=== PATIENT | male | born 1950 | race Caucasian/White ===

== ENCOUNTER 2018-04-07 14:25 | Inpatient (IN) ==
[2018-04-07 16:02] LABS: Basophils # 0.1 10*3/uL (0.0-0.2); Basophils % 0.6 % (0.0-0.8); Eosinophils # 0.6 10*3/uL (0.0-0.87); Eosinophils % 4.3 % (0.00-10.9); Hematocrit 41.7 VOL% (42.0-52.0); Hemoglobin 13.6 GM/DL (14.0-18.0); Immature Granulocytes % 0.7 %; Immature Granulocytes Absolute 0.09 #; Lymphocytes # 0.7 10*3/uL (1.4-4.0); Lymphocytes % 5.2 % (21.2-54.2); Mean Corpuscular HGB Conc 32.6 GM/DL (32-36); Mean Corpuscular Hemoglobin 32 PG (27-34); Mean Corpuscular Volume 97.9 FL (87-102); Mean Platelet Volume 9.6 FL (9.6-12.0); Monocytes # 1.2 10*3/uL (0.11-0.8); Monocytes % 9.4 % (1.7-12.7); Neutrophils # 10.2 10*3/uL (1.4-7.4); Neutrophils % 79.8 % (38.7-73.9); Platelet Count 300 T/CUMM (130-400); Red Blood Count 4.26 MC/CUMM (3.8-5.5); Red Cell Distribution Width 12.6 % (9.3-17.3); White Blood Count 12.8 T/CUMM (4-12)
[2018-04-07 16:31] LABS: Albumin 2.8 G/DL (3.4-5.0); Bilirubin,Total 1.2 MG/DL (0.2-1.0); Calcium 8.5 MG/DL (8.5-10.1); Lactic Acid 1.1 MMOL/L (0.4-2.0); Total Protein 7.4 G/DL (6.4-8.3)
[2018-04-07] MEDS ORDERED: ACETAMINOPHEN 325 MG TABLET PO PRN (18:35)
[2018-04-07] MEDS ORDERED: ENOXAPARIN 40 MG/0.4 ML SYRINGE SUBCUT SCH (21:00)
[2018-04-07] MEDS: SODIUM CHLORIDE 0.9% 1,000 ML IV SCH (22:25)
[2018-04-08 06:07] LABS: Basophils # 0.1 10*3/uL (0.0-0.2); Basophils % 0.6 % (0.0-0.8); Eosinophils # 0.7 10*3/uL (0.0-0.87); Eosinophils % 6.1 % (0.00-10.9); Hematocrit 38.1 VOL% (42.0-52.0); Hemoglobin 12.3 GM/DL (14.0-18.0); Immature Granulocytes % 0.6 %; Immature Granulocytes Absolute 0.06 #; Lymphocytes # 0.7 10*3/uL (1.4-4.0); Lymphocytes % 6.2 % (21.2-54.2); Mean Corpuscular HGB Conc 32.3 GM/DL (32-36); Mean Corpuscular Hemoglobin 32 PG (27-34); Mean Corpuscular Volume 97.9 FL (87-102); Mean Platelet Volume 10.2 FL (9.6-12.0); Monocytes # 1.2 10*3/uL (0.11-0.8); Monocytes % 10.6 % (1.7-12.7); Neutrophils # 8.3 10*3/uL (1.4-7.4); Neutrophils % 75.9 % (38.7-73.9); Platelet Count 283 T/CUMM (130-400); Red Blood Count 3.89 MC/CUMM (3.8-5.5); Red Cell Distribution Width 12.7 % (9.3-17.3); White Blood Count 10.9 T/CUMM (4-12)
[2018-04-08 06:35] LABS: Albumin 2.4 G/DL (3.4-5.0); Bilirubin,Total 1.5 MG/DL (0.2-1.0); Calcium 8.2 MG/DL (8.5-10.1); Potassium 3.6 MMOL/L (3.5-5.1); Total Protein 6.5 G/DL (6.4-8.3)
[2018-04-08 12:44] LABS: Cancer Antigen 19-9 226.6 U/ML (0-37); Carcinoembryonic Antigen 7.8 NG/ML (0.0-5.0)
[2018-04-08] MEDS: MULTIVITAMIN (CENTRUM) TABLET PO SCH (13:31)
[2018-04-08] MEDS: SODIUM CHLORIDE 0.9% 1,000 ML IV SCH ×2 (14:35→19:32)
[2018-04-09] MEDS: SODIUM CHLORIDE 0.9% 1,000 ML IV SCH ×2 (03:10→12:46)
[2018-04-09 04:56] LABS: Albumin 2.3 G/DL (3.4-5.0); Bilirubin,Direct 0.28 MG/DL (0.0-0.20); Bilirubin,Indirect 1.3 MG/DL (0.0-1.0); Bilirubin,Total 1.6 MG/DL (0.2-1.0)
[2018-04-09] MEDS: MULTIVITAMIN (CENTRUM) TABLET PO SCH (09:28)
[2018-04-09] MEDS ORDERED: LORazepam 2 MG/1 ML VIAL IV PRN (10:58)
[2018-04-09] MEDS: THIAMINE 100 MG TABLET PO SCH (12:45)
[2018-04-09] MEDS: FOLIC ACID 1 MG TABLET PO SCH (12:45)
[2018-04-09 15:17] LABS: INR 1.1; Partial Thromboplastin Time 29.2 SECS (0-40)
[2018-04-10 05:05] LABS: Albumin 2.5 G/DL (3.4-5.0); Bilirubin,Direct 0.47 MG/DL (0.0-0.20); Bilirubin,Indirect 1.2 MG/DL (0.0-1.0); Bilirubin,Total 1.7 MG/DL (0.2-1.0); Total Protein 6.2 G/DL (6.4-8.3)
[2018-04-10] MEDS: SODIUM CHLORIDE 0.9% 1,000 ML IV SCH ×3 (05:18→23:21)
[2018-04-10] MEDS: FOLIC ACID 1 MG TABLET PO SCH (09:00)
[2018-04-10] MEDS: THIAMINE 100 MG TABLET PO SCH (09:00)
[2018-04-10] MEDS: MULTIVITAMIN (CENTRUM) TABLET PO SCH (09:00)
[2018-04-11 04:31] LABS: Basophils # 0.1 10*3/uL (0.0-0.2); Basophils % 0.5 % (0.0-0.8); Eosinophils # 0.7 10*3/uL (0.0-0.87); Eosinophils % 5.9 % (0.00-10.9); Hematocrit 37.9 VOL% (42.0-52.0); Hemoglobin 12.4 GM/DL (14.0-18.0); Immature Granulocytes % 0.6 %; Immature Granulocytes Absolute 0.07 #; Lymphocytes # 0.4 10*3/uL (1.4-4.0); Mean Corpuscular HGB Conc 32.7 GM/DL (32-36); Mean Corpuscular Hemoglobin 32 PG (27-34); Mean Corpuscular Volume 96.2 FL (87-102); Mean Platelet Volume 9.8 FL (9.6-12.0); Monocytes # 1.1 10*3/uL (0.11-0.8); Monocytes % 9.7 % (1.7-12.7); Neutrophils # 8.8 10*3/uL (1.4-7.4); Neutrophils % 79.3 % (38.7-73.9); Platelet Count 278 T/CUMM (130-400); Red Blood Count 3.94 MC/CUMM (3.8-5.5); Red Cell Distribution Width 12.8 % (9.3-17.3); White Blood Count 11.1 T/CUMM (4-12)
[2018-04-11 04:35] LABS: INR 1.1
[2018-04-11 05:00] LABS: Band Neutrophils 1 % (0-10); Eosinophils 7 % (0-10); Lymphocytes 5 % (20-55); Platelet Estimate Normal; Segmented Neutrophils 81 % (50-85); Total Cells Counted 100
[2018-04-11] MEDS: FOLIC ACID 1 MG TABLET PO SCH (09:01)
[2018-04-11] MEDS: MULTIVITAMIN (CENTRUM) TABLET PO SCH (09:01)
[2018-04-11] MEDS: THIAMINE 100 MG TABLET PO SCH (09:01)
[2018-04-11 13:56] VITALS: BP 135/75
== END 2018-04-11 14:08 | disposition home or self-care (01) | DRG 436 ==
LOC: N.ED 14:25 → N.3E 18:35 → SUATTDRO 18:35 → N.3E 20:09
PROVIDERS: ADMIT Internal Medicine Geriatric Medicine; ATTEND Internal Medicine

== ENCOUNTER 2018-05-13 13:26 | Inpatient (IN) ==
[2018-05-13 13:48] LABS: Basophils # 0.1 10*3/uL (0.0-0.2); Basophils % 0.7 % (0.0-0.8); Eosinophils # 1.1 10*3/uL (0.0-0.87); Eosinophils % 13.8 % (0.00-10.9); Hematocrit 37.2 VOL% (42.0-52.0); Hemoglobin 12.1 GM/DL (14.0-18.0); Immature Granulocytes % 0.5 %; Immature Granulocytes Absolute 0.04 #; Lymphocytes # 0.5 10*3/uL (1.4-4.0); Lymphocytes % 5.7 % (21.2-54.2); Mean Corpuscular HGB Conc 32.5 GM/DL (32-36); Mean Corpuscular Hemoglobin 30 PG (27-34); Mean Corpuscular Volume 91.2 FL (87-102); Monocytes # 1.3 10*3/uL (0.11-0.8); Monocytes % 15.6 % (1.7-12.7); Neutrophils # 5.2 10*3/uL (1.4-7.4); Neutrophils % 63.7 % (38.7-73.9); Platelet Count 172 T/CUMM (130-400); Red Blood Count 4.08 MC/CUMM (3.8-5.5); Red Cell Distribution Width 17.2 % (9.3-17.3); White Blood Count 8.1 T/CUMM (4-12)
[2018-05-13 14:22] LABS: Albumin 1.9 G/DL (3.4-5.0); Bilirubin,Total 2.7 MG/DL (0.2-1.0); Calcium 8.3 MG/DL (8.5-10.1); Osmolality,Calculated 265.9 MOS/KG (273-304); Total Protein 5.6 G/DL (6.4-8.3)
[2018-05-13] MEDS ORDERED: LACTATED RINGERS 1,000 ML IV SCH (14:30)
[2018-05-13] MEDS ORDERED: LACTATED RINGERS 1,000 ML IV ONE (14:39)
[2018-05-13] MEDS ORDERED: SODIUM CHLORIDE 0.9% 2,000 ML IV STA (15:00)
[2018-05-13] MEDS ORDERED: MEROPENEM 1,000 MG in SODIUM CHLORIDE 0.9% 100 ML IV STA (15:05)
[2018-05-13] MEDS ORDERED: PIPERACILLIN/TAZOBACTAM 3,375 MG in SODIUM CHLORIDE 0.9% 100 ML IV STA (15:07)
[2018-05-13] MEDS ORDERED: ONDANSETRON 4 MG/2 ML VIAL IV STA (15:18)
[2018-05-13] MEDS ORDERED: ONDANSETRON 4 MG/2 ML VIAL ONE (15:20)
[2018-05-13] MEDS ORDERED: PROMETHAZINE 25 MG/1 ML VIAL IM PRN (15:28)
[2018-05-13] MEDS ORDERED: ACETAMINOPHEN 325 MG TABLET PO PRN (15:28)
[2018-05-13] MEDS ORDERED: ONDANSETRON 4 MG/2 ML VIAL IV PRN (15:28)
[2018-05-13 16:32] LABS: Apearance,Urine CLEAR (Clear); Bilirubin,Urine Negative (Negative); Blood, Urine Negative (Negative); Glucose,Urine (UA) Negative (Negative); Hyaline Casts,Urine 4 /LPF (0-3); Ketones,Urine Negative (Negative); Mucus,Urine Occasional /LPF (Occasional); Nitrite,Urine Negative (Negative); Protein,Urine Negative; RBC,Urine 2 /HPF (0-4); Squamous Epithelial Cell,Urine Occasional /HPF (0-10); Urine Color Amber (Yellow); Urine Specific Gravity 1.019 (1.001-1.035); Urine Urobilinogen < 2.0 EU/DL (0.2-1.0); WBC,Urine 1 /HPF (0-6)
[2018-05-13] MEDS ORDERED: PROCHLORPERAZINE 10 MG TABLET PO PRN (16:44)
[2018-05-13] MEDS: PANTOPRAZOLE 40 MG TABLET PO SCH (16:46)
[2018-05-13] MEDS: MORPHINE 4 MG/1 ML VIAL IV PRN ×2 (17:30→21:45)
[2018-05-13 17:39] LABS: Band Neutrophils 4 % (0-10); Eosinophils 12 % (0-10); Lymphocytes 5 % (20-55); Platelet Estimate Normal; Segmented Neutrophils 64 % (50-85); Total Cells Counted 100
[2018-05-14] MEDS: PIPERACILLIN/TAZOBACTAM 3,375 MG in SODIUM CHLORIDE 0.9% 100 ML IV SCH ×3 (00:01→21:38)
[2018-05-14] MEDS: HEPARIN LOCK FLUSH 500 UNIT/5 ML SYRINGE IV SCH ×2 (04:16→18:42)
[2018-05-14 05:30] LABS: Basophils % 0.5 % (0.0-0.8); Eosinophils # 1.1 10*3/uL (0.0-0.87); Eosinophils % 19.8 % (0.00-10.9); Hematocrit 33.3 VOL% (42.0-52.0); Hemoglobin 10.6 GM/DL (14.0-18.0); Immature Granulocytes % 0.9 %; Immature Granulocytes Absolute 0.05 #; Lymphocytes # 0.5 10*3/uL (1.4-4.0); Lymphocytes % 8.1 % (21.2-54.2); Mean Corpuscular HGB Conc 31.8 GM/DL (32-36); Mean Corpuscular Hemoglobin 29 PG (27-34); Mean Corpuscular Volume 91.7 FL (87-102); Monocytes # 1.5 10*3/uL (0.11-0.8); Monocytes % 25.4 % (1.7-12.7); Neutrophils # 2.6 10*3/uL (1.4-7.4); Neutrophils % 45.3 % (38.7-73.9); Platelet Count 170 T/CUMM (130-400); Red Blood Count 3.63 MC/CUMM (3.8-5.5); Red Cell Distribution Width 17.5 % (9.3-17.3); White Blood Count 5.7 T/CUMM (4-12)
[2018-05-14 05:59] LABS: Albumin 1.8 G/DL (3.4-5.0); Band Neutrophils 6 % (0-10); Bilirubin,Total 3.2 MG/DL (0.2-1.0); Calcium 7.9 MG/DL (8.5-10.1); Eosinophils 22 % (0-10); Hypochromasia 1+; Lymphocytes 6 % (20-55); Osmolality,Calculated 260.1 MOS/KG (273-304); Platelet Estimate Adequate; Potassium 4.7 MMOL/L (3.5-5.1); Segmented Neutrophils 44 % (50-85); Total Cells Counted 100; Total Protein 5.6 G/DL (6.4-8.3)
[2018-05-14 06:00] LABS: Misc Morphology FEW LAREG; Ovalocytes Slight
[2018-05-14] MEDS: MORPHINE 4 MG/1 ML VIAL IV PRN ×3 (06:13→21:33)
[2018-05-14] MEDS ORDERED: FUROSEMIDE 40 MG/4 ML VIAL IV ONE ×2 (09:34→19:00)
[2018-05-14] MEDS ORDERED: ALBUMIN 5% 25 GM in PREMIX 1 EACH IV ONE (10:00)
[2018-05-14] MEDS: PANTOPRAZOLE 40 MG TABLET PO SCH ×2 (12:19→14:54)
[2018-05-14] MEDS: ALBUTEROL/IPRATROPIUM 3 ML NEB RESP TX SCH ×2 (13:58→19:24)
[2018-05-14] MEDS: AZITHROMYCIN INJ 250 MG in SODIUM CHLORIDE 0.9% 250 ML IV SCH (18:44)
[2018-05-15] MEDS: ALBUTEROL/IPRATROPIUM 3 ML NEB RESP TX SCH ×4 (01:02→20:04)
[2018-05-15] MEDS: MORPHINE 4 MG/1 ML VIAL IV PRN ×4 (01:29→23:36)
[2018-05-15] MEDS: HEPARIN LOCK FLUSH 500 UNIT/5 ML SYRINGE IV SCH ×2 (01:35→15:34)
[2018-05-15 04:32] LABS: Basophils % 0.5 % (0.0-0.8); Hematocrit 31.6 VOL% (42.0-52.0); Immature Granulocytes % 1.6 %; Immature Granulocytes Absolute 0.07 #; Lymphocytes # 0.3 10*3/uL (1.4-4.0); Lymphocytes % 7.6 % (21.2-54.2); Mean Corpuscular HGB Conc 31.6 GM/DL (32-36); Mean Corpuscular Hemoglobin 29 PG (27-34); Mean Corpuscular Volume 92.4 FL (87-102); Monocytes # 1.6 10*3/uL (0.11-0.8); Monocytes % 36.4 % (1.7-12.7); Neutrophils # 1.3 10*3/uL (1.4-7.4); Neutrophils % 29.9 % (38.7-73.9); Platelet Count 221 T/CUMM (130-400); Red Blood Count 3.42 MC/CUMM (3.8-5.5); Red Cell Distribution Width 18.1 % (9.3-17.3); White Blood Count 4.3 T/CUMM (4-12)
[2018-05-15] MEDS: PIPERACILLIN/TAZOBACTAM 3,375 MG in SODIUM CHLORIDE 0.9% 100 ML IV SCH ×3 (04:47→21:51)
[2018-05-15 04:53] LABS: Albumin 1.9 G/DL (3.4-5.0); Bilirubin,Total 3.6 MG/DL (0.2-1.0); Osmolality,Calculated 262.8 MOS/KG (273-304); Potassium 3.8 MMOL/L (3.5-5.1); Total Protein 5.7 G/DL (6.4-8.3)
[2018-05-15 05:21] LABS: Band Neutrophils 2 % (0-10); Eosinophils 29 % (0-10); Hypochromasia 1+; Lymphocytes 13 % (20-55); Platelet Estimate Adequate; Segmented Neutrophils 29 % (50-85); Total Cells Counted 100
[2018-05-15] MEDS ORDERED: MAGNESIUM SULF RIDER 2 GM in PREMIX 1 EACH IV ONE (07:58)
[2018-05-15] MEDS: PANTOPRAZOLE 40 MG TABLET PO SCH (08:51)
[2018-05-15] MEDS: oxyCODONE IR 5 MG TABLET PO PRN ×3 (10:43→21:55)
[2018-05-15] MEDS: ALBUMIN 25% 25 GM in PREMIX 1 EACH IV SCH ×2 (12:01→20:32)
[2018-05-15] MEDS: FUROSEMIDE 40 MG/4 ML VIAL IV SCH ×2 (13:35→16:38)
[2018-05-15] MEDS: AZITHROMYCIN INJ 250 MG in SODIUM CHLORIDE 0.9% 250 ML IV SCH (13:39)
[2018-05-16] MEDS: ALBUTEROL/IPRATROPIUM 3 ML NEB RESP TX SCH ×4 (01:11→20:08)
[2018-05-16] MEDS: HEPARIN LOCK FLUSH 500 UNIT/5 ML SYRINGE IV SCH ×2 (02:35→14:20)
[2018-05-16 04:55] LABS: Basophils % 0.7 % (0.0-0.8); Eosinophils # 1.2 10*3/uL (0.0-0.87); Eosinophils % 27.6 % (0.00-10.9); Hematocrit 32.4 VOL% (42.0-52.0); Hemoglobin 10.3 GM/DL (14.0-18.0); Immature Granulocytes Absolute 0.22 #; Lymphocytes # 0.4 10*3/uL (1.4-4.0); Lymphocytes % 8.2 % (21.2-54.2); Mean Corpuscular HGB Conc 31.8 GM/DL (32-36); Mean Corpuscular Hemoglobin 30 PG (27-34); Mean Corpuscular Volume 93.1 FL (87-102); Monocytes # 1.8 10*3/uL (0.11-0.8); Monocytes % 40.8 % (1.7-12.7); Neutrophils # 0.8 10*3/uL (1.4-7.4); Neutrophils % 17.7 % (38.7-73.9); Platelet Count 249 T/CUMM (130-400); Red Blood Count 3.48 MC/CUMM (3.8-5.5); Red Cell Distribution Width 18.2 % (9.3-17.3); White Blood Count 4.4 T/CUMM (4-12)
[2018-05-16 05:29] LABS: Albumin 2.5 G/DL (3.4-5.0); Bilirubin,Total 3.9 MG/DL (0.2-1.0); Calcium 8.2 MG/DL (8.5-10.1); Osmolality,Calculated 264.7 MOS/KG (273-304); Total Protein 5.9 G/DL (6.4-8.3)
[2018-05-16] MEDS: PIPERACILLIN/TAZOBACTAM 3,375 MG in SODIUM CHLORIDE 0.9% 100 ML IV SCH ×3 (05:36→21:47)
[2018-05-16 05:58] LABS: Band Neutrophils 4 % (0-10); Eosinophils 37 % (0-10); Hypochromasia 1+; Lymphocytes 9 % (20-55); Ovalocytes Slight; Platelet Estimate Adequate; Segmented Neutrophils 13 % (50-85); Total Cells Counted 100
[2018-05-16] MEDS ORDERED: BETAMETH SODIUM PHOS/ACETATE 30 MG/5 ML VIAL INTRAARTIC ONE (06:00)
[2018-05-16] MEDS ORDERED: BUPIVACAINE 0.25% 50 ML VIAL MISC INJ ONE (06:00)
[2018-05-16] MEDS: PANTOPRAZOLE 40 MG TABLET PO SCH (08:36)
[2018-05-16] MEDS: oxyCODONE IR 5 MG TABLET PO PRN ×2 (08:42→16:23)
[2018-05-16] MEDS ORDERED: PALONOSETRON 0.25 MG/5 ML VIAL IV ONE (09:00)
[2018-05-16] MEDS ORDERED: DEXAMETHASONE 10 MG/1 ML VIAL IV ONE (09:00)
[2018-05-16] MEDS: ALBUMIN 25% 25 GM in PREMIX 1 EACH IV SCH ×2 (09:45→20:25)
[2018-05-16] MEDS ORDERED: FLUOROURACIL 800 MG in SYRINGE 1 EACH IV ONE (10:00)
[2018-05-16] MEDS ORDERED: DEXTROSE 5% IV ONE (10:00)
[2018-05-16] MEDS ORDERED: LEUCOVORIN INJ 700 MG, LEUCOVORIN INJ 100 MG in DEXTROSE 5% 250 ML IV ONE (10:00)
[2018-05-16] MEDS ORDERED: OXALIPLATIN IV ONE (10:00)
[2018-05-16] MEDS ORDERED: POTASSIUM CHLORIDE RIDER 10 MEQ in PREMIX 1 EACH IV PRN (10:13)
[2018-05-16] MEDS ORDERED: POTASSIUM CHLORIDE RIDER 20 MEQ in PREMIX 1 EACH IV PRN (10:13)
[2018-05-16] MEDS: AZITHROMYCIN INJ 250 MG in SODIUM CHLORIDE 0.9% 250 ML IV SCH (11:18)
[2018-05-16] MEDS: FUROSEMIDE 40 MG/4 ML VIAL IV SCH ×2 (11:18→17:33)
[2018-05-16] MEDS: POTASSIUM CHLORIDE 20 MEQ TABLET PO SCH ×2 (11:19→20:25)
[2018-05-16] MEDS: SPIRONOLACTONE 25 MG TABLET PO SCH ×2 (11:21→20:25)
[2018-05-16] MEDS: POTASSIUM CHLORIDE 20 MEQ TABLET PO PRN ×2 (16:23→21:48)
[2018-05-16] MEDS: FLUOROURACIL 2,000 MG in SODIUM CHLORIDE 0.9% 1,000 ML IV SCH (17:35)
[2018-05-17] MEDS: ALBUTEROL/IPRATROPIUM 3 ML NEB RESP TX SCH ×4 (00:58→20:18)
[2018-05-17] MEDS: oxyCODONE IR 5 MG TABLET PO PRN ×2 (01:27→20:37)
[2018-05-17] MEDS: HEPARIN LOCK FLUSH 500 UNIT/5 ML SYRINGE IV SCH ×2 (01:28→13:02)
[2018-05-17] MEDS: PIPERACILLIN/TAZOBACTAM 3,375 MG in SODIUM CHLORIDE 0.9% 100 ML IV SCH (04:47)
[2018-05-17 06:11] LABS: Basophils % 0.4 % (0.0-0.8); Eosinophils # 0.1 10*3/uL (0.0-0.87); Eosinophils % 5.3 % (0.00-10.9); Hematocrit 31.9 VOL% (42.0-52.0); Immature Granulocytes % 6.6 %; Immature Granulocytes Absolute 0.15 #; Lymphocytes # 0.1 10*3/uL (1.4-4.0); Lymphocytes % 4.4 % (21.2-54.2); Mean Corpuscular HGB Conc 31.3 GM/DL (32-36); Mean Corpuscular Hemoglobin 30 PG (27-34); Mean Corpuscular Volume 95.8 FL (87-102); Mean Platelet Volume 10.8 FL (9.6-12.0); Monocytes # 0.7 10*3/uL (0.11-0.8); Monocytes % 29.8 % (1.7-12.7); Neutrophils # 1.2 10*3/uL (1.4-7.4); Neutrophils % 53.5 % (38.7-73.9); Platelet Count 234 T/CUMM (130-400); Red Blood Count 3.33 MC/CUMM (3.8-5.5); Red Cell Distribution Width 18.1 % (9.3-17.3); White Blood Count 2.3 T/CUMM (4-12)
[2018-05-17 06:43] LABS: Albumin 2.5 G/DL (3.4-5.0); Bilirubin,Total 3.6 MG/DL (0.2-1.0); Osmolality,Calculated 266.7 MOS/KG (273-304); Potassium 3.3 MMOL/L (3.5-5.1)
[2018-05-17] MEDS ORDERED: MAGNESIUM SULF RIDER 2 GM in PREMIX 1 EACH IV ONE (06:50)
[2018-05-17] MEDS ORDERED: POTASSIUM CHLORIDE 20 MEQ TABLET PO ONE (06:51)
[2018-05-17 07:03] LABS: Band Neutrophils 26 % (0-10); Eosinophils 6 % (0-10); Hypochromasia 1+; Lymphocytes 6 % (20-55); Myelocytes 1 %; Ovalocytes Slight; Platelet Estimate Adequate; Segmented Neutrophils 28 % (50-85); Total Cells Counted 100
[2018-05-17] MEDS: PANTOPRAZOLE 40 MG TABLET PO SCH (08:52)
[2018-05-17] MEDS: SPIRONOLACTONE 25 MG TABLET PO SCH ×2 (08:52→20:37)
[2018-05-17] MEDS: POTASSIUM CHLORIDE 20 MEQ TABLET PO SCH ×2 (08:52→20:37)
[2018-05-17] MEDS: FUROSEMIDE 40 MG TABLET PO SCH ×2 (08:52→16:52)
[2018-05-17 10:03] LABS: Hepatitis A Ab IgM Quant 0.13 Index; Hepatitis A Ab IgM Result Negative (Negative); Hepatitis B Core IgM Quant 0.06 Index; Hepatitis B Core IgM Result Negative (Negative); Hepatitis B Surface Ag Quant < 0.10 Index; Hepatitis B Surface Ag Result Negative (Negative); Hepatitis C Virus Ab Quant > 11.00 Index; Hepatitis C Virus Ab Result Positive (Negative)
[2018-05-17] MEDS: AZITHROMYCIN INJ 250 MG in SODIUM CHLORIDE 0.9% 250 ML IV SCH (12:57)
[2018-05-17] MEDS: FLUOROURACIL 2,000 MG in SODIUM CHLORIDE 0.9% 1,000 ML IV SCH (16:53)
[2018-05-18] MEDS: POTASSIUM CHLORIDE 20 MEQ TABLET PO PRN ×3 (00:12→03:59)
[2018-05-18] MEDS: oxyCODONE IR 5 MG TABLET PO PRN (00:39)
[2018-05-18] MEDS: ALBUTEROL/IPRATROPIUM 3 ML NEB RESP TX SCH ×3 (01:17→13:03)
[2018-05-18] MEDS: HEPARIN LOCK FLUSH 500 UNIT/5 ML SYRINGE IV SCH ×2 (03:29→16:13)
[2018-05-18 04:43] LABS: Basophils % 0.3 % (0.0-0.8); Eosinophils # 0.4 10*3/uL (0.0-0.87); Eosinophils % 6.6 % (0.00-10.9); Hemoglobin 10.7 GM/DL (14.0-18.0); Immature Granulocytes % 2.1 %; Immature Granulocytes Absolute 0.13 #; Lymphocytes # 0.3 10*3/uL (1.4-4.0); Lymphocytes % 4.4 % (21.2-54.2); Mean Corpuscular HGB Conc 32.4 GM/DL (32-36); Mean Corpuscular Hemoglobin 30 PG (27-34); Mean Corpuscular Volume 93.2 FL (87-102); Mean Platelet Volume 11.4 FL (9.6-12.0); Monocytes % 15.3 % (1.7-12.7); Neutrophils # 4.5 10*3/uL (1.4-7.4); Neutrophils % 71.3 % (38.7-73.9); Platelet Count 246 T/CUMM (130-400); Red Blood Count 3.54 MC/CUMM (3.8-5.5); Red Cell Distribution Width 18.4 % (9.3-17.3); White Blood Count 6.3 T/CUMM (4-12)
[2018-05-18 05:13] LABS: Albumin 2.4 G/DL (3.4-5.0); Bilirubin,Total 3.8 MG/DL (0.2-1.0); Calcium 7.7 MG/DL (8.5-10.1); Osmolality,Calculated 262.8 MOS/KG (273-304); Potassium 5.9 MMOL/L (3.5-5.1); Total Protein 6.1 G/DL (6.4-8.3)
[2018-05-18 05:29] LABS: Band Neutrophils 7 % (0-10); Eosinophils 8 % (0-10); Lymphocytes 16 % (20-55); Myelocytes 1 %; Segmented Neutrophils 43 % (50-85); Total Cells Counted 100
[2018-05-18 05:30] LABS: Platelet Estimate Normal
[2018-05-18] MEDS: FUROSEMIDE 40 MG TABLET PO SCH (09:35)
[2018-05-18] MEDS: SPIRONOLACTONE 25 MG TABLET PO SCH (09:36)
[2018-05-18] MEDS: PANTOPRAZOLE 40 MG TABLET PO SCH (09:36)
[2018-05-18] MEDS: AZITHROMYCIN INJ 250 MG in SODIUM CHLORIDE 0.9% 250 ML IV SCH (09:37)
[2018-05-18 11:59] VITALS: BP 120/68
[2018-05-18] MEDS: POTASSIUM CHLORIDE 20 MEQ TABLET PO SCH (15:12)
== END 2018-05-18 15:02 | disposition home health service (06) | DRG 436 ==
LOC: EDUNIT# → EDBD → N.ED 13:26 → N.EDINP 15:28 → SUATTDRO 15:28 → N.EDINP 16:17 → N.4E 16:44
PROVIDERS: ADMIT Internal Medicine; ATTEND Internal Medicine Cardiovascular Disease

== ENCOUNTER 2018-05-22 16:23 | Inpatient (IN) ==
[2018-05-22] MEDS ORDERED: ONDANSETRON 4 MG/2 ML VIAL IV STA (17:04)
[2018-05-22] MEDS ORDERED: MORPHINE 4 MG/1 ML VIAL IV STA (17:04)
[2018-05-22] MEDS ORDERED: FUROSEMIDE 40 MG/4 ML VIAL IV STA (17:04)
[2018-05-22] MEDS ORDERED: PANTOPRAZOLE 40 MG VIAL IV STA (17:04)
[2018-05-22] MEDS ORDERED: ALBUTEROL/IPRATROPIUM 3 ML NEB RESP TX STA (17:04)
[2018-05-22 17:25] LABS: Basophils % 0.1 % (0.0-0.8); Eosinophils # 0.4 10*3/uL (0.0-0.87); Eosinophils % 0.8 % (0.00-10.9); Hematocrit 36.4 VOL% (42.0-52.0); Hemoglobin 11.8 GM/DL (14.0-18.0); Immature Granulocytes % 3.9 %; Immature Granulocytes Absolute 1.92 #; Lymphocytes # 0.7 10*3/uL (1.4-4.0); Lymphocytes % 1.4 % (21.2-54.2); Mean Corpuscular HGB Conc 32.4 GM/DL (32-36); Mean Corpuscular Hemoglobin 30 PG (27-34); Mean Corpuscular Volume 92.9 FL (87-102); Mean Platelet Volume 11.4 FL (9.6-12.0); Monocytes # 1.7 10*3/uL (0.11-0.8); Monocytes % 3.5 % (1.7-12.7); Neutrophils % 90.3 % (38.7-73.9); Platelet Count 202 T/CUMM (130-400); Red Blood Count 3.92 MC/CUMM (3.8-5.5)
[2018-05-22 17:31] LABS: White Blood Count 48.8 T/CUMM (4-12)
[2018-05-22 17:36] LABS: Alanine Aminotransferase 31 U/L (16-61); Albumin 2.6 G/DL (3.4-5.0); Alkaline Phosphatase 302 U/L (45-117); Amylase 20 U/L (25-115); Aspartate Amino Transferase 43 U/L (0-37); Blood Urea Nitrogen 45 MG/DL (7-18); Calcium 8.9 MG/DL (8.5-10.1); Glucose 89 MG/DL (74-106); Lipase < 50.0 U/L (73-393); Osmolality,Calculated 270.8 MOS/KG (273-304); Potassium 4.4 MMOL/L (3.5-5.1); Sodium 130 MMOL/L (136-145); Total Protein 6.3 G/DL (6.4-8.3)
[2018-05-22 17:53] LABS: Band Neutrophils 2 % (0-10); Lymphocytes 2 % (20-55); Segmented Neutrophils 92 % (50-85); Total Cells Counted 100
[2018-05-22 17:54] LABS: Hypochromasia 1+
[2018-05-22 17:55] LABS: Ovalocytes Slight
[2018-05-22 17:56] LABS: Platelet Estimate Normal
[2018-05-22] MEDS ORDERED: MEROPENEM 1,000 MG in SODIUM CHLORIDE 0.9% 100 ML IV SCH (18:30)
[2018-05-22 18:46] LABS: INR 1.2; PT Patient Result 13.2 SECS
[2018-05-22] MEDS ORDERED: SODIUM CHLORIDE 0.9% 1,000 ML IV ONE (18:56)
[2018-05-22] MEDS ORDERED: SODIUM CHLORIDE 0.9% 1,000 ML IV STA (19:44)
[2018-05-22 19:48] LABS: Apearance,Urine CLEAR (Clear); Bilirubin,Urine Negative (Negative); Blood, Urine Negative (Negative); Glucose,Urine (UA) Negative (Negative); Hyaline Casts,Urine 7 /LPF (0-3); Ketones,Urine Negative (Negative); Mucus,Urine Occasional /LPF (Occasional); Nitrite,Urine Negative (Negative); Protein,Urine Negative; RBC,Urine 1 /HPF (0-4); Squamous Epithelial Cell,Urine Occasional /HPF (0-10); Urine Color Yellow (Yellow); Urine Specific Gravity 1.015 (1.001-1.035); Urine Urobilinogen < 2.0 EU/DL (0.2-1.0)
[2018-05-22] MEDS ORDERED: BENZOCAINE/BUTAMBEN/TETRACAINE SPRAY 20 GM CAN TOP ONE (20:00)
[2018-05-22] MEDS ORDERED: HYDROmorphone 2 MG/1 ML VIAL ONE (20:35)
[2018-05-22] MEDS: SODIUM CHLORIDE 0.9% 1,000 ML IV SCH (21:25)
[2018-05-22] MEDS: MORPHINE 4 MG/1 ML VIAL IV PRN (22:29)
[2018-05-22] MEDS: PIPERACILLIN/TAZOBACTAM 3,375 MG in SODIUM CHLORIDE 0.9% 100 ML IV SCH (23:12)
[2018-05-22] MEDS: ENOXAPARIN 30 MG/0.3 ML SYRINGE SUBCUT SCH (23:55)
[2018-05-23 05:43] LABS: Basophils % 0.1 % (0.0-0.8); Eosinophils # 0.5 10*3/uL (0.0-0.87); Eosinophils % 1.9 % (0.00-10.9); Hematocrit 35.8 VOL% (42.0-52.0); Hemoglobin 11.2 GM/DL (14.0-18.0); Immature Granulocytes % 3.1 %; Immature Granulocytes Absolute 0.74 #; Lymphocytes # 0.7 10*3/uL (1.4-4.0); Mean Corpuscular HGB Conc 31.3 GM/DL (32-36); Mean Corpuscular Hemoglobin 29 PG (27-34); Mean Corpuscular Volume 93.7 FL (87-102); Mean Platelet Volume 11.7 FL (9.6-12.0); Monocytes # 1.5 10*3/uL (0.11-0.8); Monocytes % 6.5 % (1.7-12.7); NRBC # 0.03 10*3/uL; Neutrophils # 20.1 10*3/uL (1.4-7.4); Neutrophils % 85.4 % (38.7-73.9); Platelet Count 161 T/CUMM (130-400); Red Blood Count 3.82 MC/CUMM (3.8-5.5); Red Cell Distribution Width 19.1 % (9.3-17.3); White Blood Count 23.6 T/CUMM (4-12)
[2018-05-23] MEDS: PIPERACILLIN/TAZOBACTAM 3,375 MG in SODIUM CHLORIDE 0.9% 100 ML IV SCH ×3 (05:45→22:06)
[2018-05-23 06:05] LABS: Albumin 2.2 G/DL (3.4-5.0); Bilirubin,Total 3.7 MG/DL (0.2-1.0); Calcium 8.6 MG/DL (8.5-10.1); Osmolality,Calculated 269.8 MOS/KG (273-304); Potassium 4.5 MMOL/L (3.5-5.1); Total Protein 5.8 G/DL (6.4-8.3)
[2018-05-23 06:07] LABS: Band Neutrophils 6 % (0-10); Eosinophils 2 % (0-10); Hypochromasia 1+; Lymphocytes 7 % (20-55); Nucleated Red Blood Cells 1 (0-5); Platelet Estimate Adequate; Segmented Neutrophils 75 % (50-85); Total Cells Counted 100
[2018-05-23] MEDS: SODIUM CHLORIDE 0.9% 1,000 ML IV SCH (06:09)
[2018-05-23] MEDS: DEXTROSE 5% NACL 0.45% 1,000 ML IV SCH (10:04)
[2018-05-23] MEDS: MORPHINE 4 MG/1 ML VIAL IV PRN ×3 (10:04→22:05)
[2018-05-23] MEDS: ENOXAPARIN 30 MG/0.3 ML SYRINGE SUBCUT SCH (22:04)
[2018-05-23] MEDS: ONDANSETRON 4 MG/2 ML VIAL IV PRN (22:05)
[2018-05-24] MEDS: DEXTROSE 5% NACL 0.45% 1,000 ML IV SCH ×4 (03:30→15:57)
[2018-05-24] MEDS: MORPHINE 4 MG/1 ML VIAL IV PRN ×3 (05:09→15:50)
[2018-05-24] MEDS: PIPERACILLIN/TAZOBACTAM 3,375 MG in SODIUM CHLORIDE 0.9% 100 ML IV SCH ×3 (05:30→20:34)
[2018-05-24 06:06] LABS: Basophils % 0.1 % (0.0-0.8); Eosinophils # 0.3 10*3/uL (0.0-0.87); Eosinophils % 1.7 % (0.00-10.9); Hematocrit 33.9 VOL% (42.0-52.0); Hemoglobin 10.7 GM/DL (14.0-18.0); Immature Granulocytes % 1.7 %; Immature Granulocytes Absolute 0.28 #; Lymphocytes # 0.5 10*3/uL (1.4-4.0); Lymphocytes % 3.3 % (21.2-54.2); Mean Corpuscular HGB Conc 31.6 GM/DL (32-36); Mean Corpuscular Hemoglobin 29 PG (27-34); Mean Corpuscular Volume 92.6 FL (87-102); Monocytes # 2.2 10*3/uL (0.11-0.8); Monocytes % 13.8 % (1.7-12.7); Neutrophils # 12.9 10*3/uL (1.4-7.4); Neutrophils % 79.4 % (38.7-73.9); Platelet Count 140 T/CUMM (130-400); Red Blood Count 3.66 MC/CUMM (3.8-5.5); Red Cell Distribution Width 19.3 % (9.3-17.3); White Blood Count 16.3 T/CUMM (4-12)
[2018-05-24 06:37] LABS: Band Neutrophils 6 % (0-10); Calcium 8.1 MG/DL (8.5-10.1); Eosinophils 2 % (0-10); Hypochromasia Slight; Lymphocytes 11 % (20-55); Osmolality,Calculated 273.7 MOS/KG (273-304); Platelet Estimate Adequate; Potassium 4.2 MMOL/L (3.5-5.1); Segmented Neutrophils 75 % (50-85); Total Cells Counted 100
[2018-05-24] MEDS ORDERED: ALBUMIN 5% 12.5 GM/250 ML VIAL IV ONE ×2 (11:41→13:31)
[2018-05-24] MEDS ORDERED: PROPOFOL 1,000 MG/100 ML BOTTLE IV SCH (12:30)
[2018-05-24] MEDS ORDERED: PROPOFOL 200 MG/20 ML VIAL IV ONE (13:31)
[2018-05-24] MEDS ORDERED: fentaNYL 100 MCG/2 ML VIAL ONE (13:31)
[2018-05-24] MEDS ORDERED: MIDAZOLAM 2 MG/2 ML VIAL ONE (13:31)
[2018-05-24] MEDS ORDERED: SEVOFLURANE 1 UNIT/15 MINUTE INH ONE (13:31)
[2018-05-24] MEDS ORDERED: SUCCINYLCHOLINE 200 MG/10 ML VIAL ONE (13:32)
[2018-05-24] MEDS ORDERED: ROCURONIUM 100 MG/10 ML VIAL IV ONE (13:32)
[2018-05-24] MEDS ORDERED: PHENYLEPHRINE 1 MG/10 ML SYRINGE IV ONE (13:32)
[2018-05-24] MEDS ORDERED: DEXAMETHASONE 10 MG/1 ML VIAL ONE (13:32)
[2018-05-24] MEDS ORDERED: LACTATED RINGERS 1,000 ML IV ONE (13:40)
[2018-05-24 13:53] LABS: Amorphous Crystals,Urine Occasional /HPF (Few); Apearance,Urine CLOUDY (Clear); Bacteria,Urine Occasional /HPF (Few); Bilirubin,Urine Negative (Negative); Blood, Urine Large mg/dL (Negative); Glucose,Urine (UA) Negative (Negative); Ketones,Urine Negative (Negative); Nitrite,Urine Negative (Negative); Protein,Urine Negative; Urine Color Amber (Yellow); Urine Specific Gravity 1.024 (1.001-1.035); Urine Urobilinogen < 2.0 EU/DL (0.2-1.0)
[2018-05-24 13:55] LABS: ABG Base Excess -1.1 MMOL/L (-2.5-2.5); ABG HCO3 24.6 MMOL/L (20-26); ABG Oxygen Saturation 98.4 % (95-100); ABG PCO2 45.2 MM HG (35-48); ABG PH 7.354 (7.35-7.45); ABG PO2 134.7 MM HG (80-95)
[2018-05-24 14:04] LABS: Basophils # 0.1 10*3/uL (0.0-0.2); Basophils % 0.6 % (0.0-0.8); Eosinophils # 0.2 10*3/uL (0.0-0.87); Eosinophils % 1.3 % (0.00-10.9); Hematocrit 34.3 VOL% (42.0-52.0); Hemoglobin 10.9 GM/DL (14.0-18.0); Immature Granulocytes % 2.9 %; Immature Granulocytes Absolute 0.35 #; Lymphocytes # 0.6 10*3/uL (1.4-4.0); Lymphocytes % 4.6 % (21.2-54.2); Mean Corpuscular HGB Conc 31.8 GM/DL (32-36); Mean Corpuscular Hemoglobin 30 PG (27-34); Mean Corpuscular Volume 93.5 FL (87-102); Mean Platelet Volume 11.8 FL (9.6-12.0); Monocytes # 1.7 10*3/uL (0.11-0.8); Monocytes % 13.8 % (1.7-12.7); Neutrophils # 9.2 10*3/uL (1.4-7.4); Neutrophils % 76.8 % (38.7-73.9); Platelet Count 132 T/CUMM (130-400); Red Blood Count 3.67 MC/CUMM (3.8-5.5); Red Cell Distribution Width 19.1 % (9.3-17.3); White Blood Count 11.9 T/CUMM (4-12)
[2018-05-24 14:29] LABS: Calcium 7.9 MG/DL (8.5-10.1); Osmolality,Calculated 273.7 MOS/KG (273-304); Potassium 4.6 MMOL/L (3.5-5.1)
[2018-05-24 15:49] LABS: Band Neutrophils 36 % (0-10); Lymphocytes 4 % (20-55); Segmented Neutrophils 47 % (50-85)
[2018-05-24 16:10] LABS: Toxic Granulation 1+
[2018-05-24 16:11] LABS: Platelet Estimate Normal
[2018-05-24 16:12] LABS: Polychromasia Few
[2018-05-24 16:13] LABS: Anisocytosis Slight
[2018-05-24 16:17] LABS: Macrocytosis Slight; Total Cells Counted 100
[2018-05-24] MEDS: LACTATED RINGERS 1,000 ML IV SCH (18:00)
[2018-05-24] MEDS: HYDROmorphone 2 MG/1 ML VIAL IV PRN ×2 (18:10→23:22)
[2018-05-24] MEDS ORDERED: ALBUMIN 25% 25 GM in PREMIX 1 EACH IV ONE (18:33)
[2018-05-24] MEDS: ENOXAPARIN 30 MG/0.3 ML SYRINGE SUBCUT SCH (20:35)
[2018-05-25] MEDS: HYDROmorphone 2 MG/1 ML VIAL IV PRN ×4 (02:17→16:55)
[2018-05-25] MEDS: LACTATED RINGERS 1,000 ML IV SCH ×2 (03:12→13:25)
[2018-05-25] MEDS: PIPERACILLIN/TAZOBACTAM 3,375 MG in SODIUM CHLORIDE 0.9% 100 ML IV SCH ×3 (04:30→19:49)
[2018-05-25 05:40] LABS: Basophils # 0.1 10*3/uL (0.0-0.2); Basophils % 0.6 % (0.0-0.8); Eosinophils % 0.1 % (0.00-10.9); Hematocrit 31.8 VOL% (42.0-52.0); Hemoglobin 9.6 GM/DL (14.0-18.0); Immature Granulocytes % 1.7 %; Immature Granulocytes Absolute 0.15 #; Lymphocytes # 0.3 10*3/uL (1.4-4.0); Lymphocytes % 3.3 % (21.2-54.2); Mean Corpuscular HGB Conc 30.2 GM/DL (32-36); Mean Corpuscular Hemoglobin 29 PG (27-34); Mean Platelet Volume 11.6 FL (9.6-12.0); Monocytes # 1.6 10*3/uL (0.11-0.8); Monocytes % 18.1 % (1.7-12.7); NRBC # 0.02 10*3/uL; Neutrophils # 6.7 10*3/uL (1.4-7.4); Neutrophils % 76.2 % (38.7-73.9); Platelet Count 96 T/CUMM (130-400); Red Blood Count 3.28 MC/CUMM (3.8-5.5); Red Cell Distribution Width 19.4 % (9.3-17.3); White Blood Count 8.8 T/CUMM (4-12)
[2018-05-25 05:54] LABS: Calcium 7.5 MG/DL (8.5-10.1); Osmolality,Calculated 269.1 MOS/KG (273-304); Potassium 4.4 MMOL/L (3.5-5.1)
[2018-05-25 07:07] LABS: Anisocytosis 1+; Band Neutrophils 14 % (0-10); Lymphocytes 6 % (20-55); Segmented Neutrophils 71 % (50-85); Total Cells Counted 100
[2018-05-25 07:08] LABS: Platelet Estimate Adequate; Poikilocytosis 1+
[2018-05-25] MEDS: PANTOPRAZOLE 40 MG VIAL IV SCH (13:23)
[2018-05-25] MEDS: ENOXAPARIN 30 MG/0.3 ML SYRINGE SUBCUT SCH (20:37)
[2018-05-26] MEDS: HYDROmorphone 2 MG/1 ML VIAL IV PRN ×5 (00:26→21:36)
[2018-05-26] MEDS: PIPERACILLIN/TAZOBACTAM 3,375 MG in SODIUM CHLORIDE 0.9% 100 ML IV SCH ×3 (04:13→20:55)
[2018-05-26 05:53] LABS: Basophils # 0.1 10*3/uL (0.0-0.2); Basophils % 0.5 % (0.0-0.8); Eosinophils # 0.2 10*3/uL (0.0-0.87); Eosinophils % 1.2 % (0.00-10.9); Hematocrit 32.1 VOL% (42.0-52.0); Hemoglobin 10.3 GM/DL (14.0-18.0); Immature Granulocytes % 9.9 %; Immature Granulocytes Absolute 1.48 #; Lymphocytes # 0.7 10*3/uL (1.4-4.0); Lymphocytes % 4.3 % (21.2-54.2); Mean Corpuscular HGB Conc 32.1 GM/DL (32-36); Mean Corpuscular Hemoglobin 30 PG (27-34); Mean Corpuscular Volume 94.1 FL (87-102); Mean Platelet Volume 11.8 FL (9.6-12.0); Monocytes # 2.1 10*3/uL (0.11-0.8); Monocytes % 13.7 % (1.7-12.7); NRBC # 0.04 10*3/uL; Neutrophils # 10.5 10*3/uL (1.4-7.4); Neutrophils % 70.4 % (38.7-73.9); Platelet Count 160 T/CUMM (130-400); Red Blood Count 3.41 MC/CUMM (3.8-5.5); Red Cell Distribution Width 20.2 % (9.3-17.3)
[2018-05-26 06:05] LABS: INR 1.4; PT Patient Result 15.4 SECS
[2018-05-26 06:15] LABS: Band Neutrophils 51 % (0-10); Eosinophils 4 % (0-10); Lymphocytes 6 % (20-55); Metamyelocytes 4 %; Segmented Neutrophils 25 % (50-85); Total Cells Counted 100
[2018-05-26 06:16] LABS: Anisocytosis 1+; Macrocytosis Slight; Platelet Estimate Adequate
[2018-05-26 06:23] LABS: Albumin 2.2 G/DL (3.4-5.0); Albumin 2.3 G/DL (3.4-5.0); Bilirubin,Direct 2.53 MG/DL (0.0-0.20); Bilirubin,Indirect 1.5 MG/DL (0.0-1.0); Bilirubin,Total 4.2 MG/DL (0.2-1.0); Calcium 7.8 MG/DL (8.5-10.1); Osmolality,Calculated 277.7 MOS/KG (273-304); Potassium 4.8 MMOL/L (3.5-5.1); Total Protein 5.7 G/DL (6.4-8.3)
[2018-05-26] MEDS: PANTOPRAZOLE 40 MG VIAL IV SCH (11:02)
[2018-05-26] MEDS: LACTATED RINGERS 1,000 ML IV SCH ×3 (11:06→21:33)
[2018-05-26] MEDS ORDERED: DEXTROSE 10% 1,000 ML IV PRN (11:40)
[2018-05-26] MEDS ORDERED: GLUCAGON 1 MG VIAL IM PRN (11:40)
[2018-05-26] MEDS ORDERED: DEXTROSE 50% 25 GM/50 ML SYRINGE IV PRN (11:40)
[2018-05-26] MEDS: AMINO ACIDS/DEXT/LYTES 4.25-5% 2,000 ML IV SCH (16:18)
[2018-05-26] MEDS: FAT EMULSION 20% 250 ML IV SCH (16:21)
[2018-05-26] MEDS: ENOXAPARIN 30 MG/0.3 ML SYRINGE SUBCUT SCH (20:55)
[2018-05-27] MEDS: HYDROmorphone 2 MG/1 ML VIAL IV PRN ×6 (01:23→22:48)
[2018-05-27] MEDS: PIPERACILLIN/TAZOBACTAM 3,375 MG in SODIUM CHLORIDE 0.9% 100 ML IV SCH ×3 (04:18→20:35)
[2018-05-27] MEDS: LACTATED RINGERS 1,000 ML IV SCH ×3 (04:25→19:19)
[2018-05-27 05:58] LABS: Basophils # 0.2 10*3/uL (0.0-0.2); Basophils % 0.7 % (0.0-0.8); Eosinophils # 0.5 10*3/uL (0.0-0.87); Eosinophils % 2.4 % (0.00-10.9); Hematocrit 31.9 VOL% (42.0-52.0); Immature Granulocytes % 11.3 %; Immature Granulocytes Absolute 2.44 #; Lymphocytes # 0.6 10*3/uL (1.4-4.0); Lymphocytes % 2.6 % (21.2-54.2); Mean Corpuscular HGB Conc 31.3 GM/DL (32-36); Mean Corpuscular Hemoglobin 30 PG (27-34); Mean Corpuscular Volume 95.5 FL (87-102); Mean Platelet Volume 11.3 FL (9.6-12.0); Monocytes # 2.5 10*3/uL (0.11-0.8); Monocytes % 11.5 % (1.7-12.7); NRBC # 0.19 10*3/uL; Neutrophils # 15.5 10*3/uL (1.4-7.4); Neutrophils % 71.5 % (38.7-73.9); Platelet Count 131 T/CUMM (130-400); Red Blood Count 3.34 MC/CUMM (3.8-5.5); Red Cell Distribution Width 21.1 % (9.3-17.3); White Blood Count 21.7 T/CUMM (4-12)
[2018-05-27 06:20] LABS: Prealbumin < 3.0 MG/DL (20-40); Triglycerides 215 MG/DL (2-150)
[2018-05-27 06:22] LABS: Albumin 2.1 G/DL (3.4-5.0); Bilirubin,Total 4.3 MG/DL (0.2-1.0); Calcium 7.5 MG/DL (8.5-10.1); Osmolality,Calculated 280.7 MOS/KG (273-304); Potassium 4.2 MMOL/L (3.5-5.1); Total Protein 5.5 G/DL (6.4-8.3)
[2018-05-27 08:04] LABS: Anisocytosis 1+; Band Neutrophils 62 % (0-10); Eosinophils 4 % (0-10); Lymphocytes 9 % (20-55); Metamyelocytes 3 %; Nucleated Red Blood Cells 1 (0-5); Platelet Estimate Adequate; Segmented Neutrophils 19 % (50-85); Total Cells Counted 100
[2018-05-27 08:05] LABS: Macrocytosis 1+; Polychromasia Slight
[2018-05-27] MEDS: PANTOPRAZOLE 40 MG VIAL IV SCH (10:37)
[2018-05-27] MEDS: FAT EMULSION 20% 250 ML IV SCH (17:00)
[2018-05-27] MEDS: AMINO ACIDS/DEXT/LYTES 4.25-5% 2,000 ML IV SCH (17:04)
[2018-05-27] MEDS: ENOXAPARIN 30 MG/0.3 ML SYRINGE SUBCUT SCH (20:36)
[2018-05-28] MEDS: LACTATED RINGERS 1,000 ML IV SCH ×2 (01:46→19:00)
[2018-05-28] MEDS: HYDROmorphone 2 MG/1 ML VIAL IV PRN ×4 (03:30→19:10)
[2018-05-28 03:59] LABS: Eosinophils # 0.4 10*3/uL (0.0-0.87); Eosinophils % 1.3 % (0.00-10.9); Hematocrit 31.7 VOL% (42.0-52.0); Hemoglobin 10.1 GM/DL (14.0-18.0); Immature Granulocytes % 8.9 %; Immature Granulocytes Absolute 2.96 #; Lymphocytes # 0.7 10*3/uL (1.4-4.0); Lymphocytes % 2.2 % (21.2-54.2); Mean Corpuscular HGB Conc 31.9 GM/DL (32-36); Mean Corpuscular Hemoglobin 31 PG (27-34); Mean Corpuscular Volume 95.8 FL (87-102); Mean Platelet Volume 11.8 FL (9.6-12.0); Monocytes # 2.6 10*3/uL (0.11-0.8); Monocytes % 7.9 % (1.7-12.7); NRBC # 0.15 10*3/uL; Neutrophils # 26.5 10*3/uL (1.4-7.4); Neutrophils % 79.7 % (38.7-73.9); Platelet Count 131 T/CUMM (130-400); Red Blood Count 3.31 MC/CUMM (3.8-5.5); Red Cell Distribution Width 21.2 % (9.3-17.3); White Blood Count 33.2 T/CUMM (4-12)
[2018-05-28 04:11] LABS: Albumin 1.9 G/DL (3.4-5.0); Calcium 7.4 MG/DL (8.5-10.1); Osmolality,Calculated 275.2 MOS/KG (273-304); Total Protein 5.2 G/DL (6.4-8.3)
[2018-05-28 04:25] LABS: Band Neutrophils 15 % (0-10); Eosinophils 1 % (0-10); Hypochromasia 1+; Lymphocytes 5 % (20-55); Metamyelocytes 3 %; Myelocytes 1 %; Platelet Estimate Normal; Segmented Neutrophils 67 % (50-85)
[2018-05-28 04:26] LABS: Anisocytosis 1+; Macrocytosis 1+; Polychromasia Few
[2018-05-28 04:27] LABS: Total Cells Counted 100
[2018-05-28] MEDS: PIPERACILLIN/TAZOBACTAM 3,375 MG in SODIUM CHLORIDE 0.9% 100 ML IV SCH ×3 (04:55→21:14)
[2018-05-28] MEDS: PANTOPRAZOLE 40 MG VIAL IV SCH (09:38)
[2018-05-28] MEDS: ALBUTEROL/IPRATROPIUM 3 ML NEB RESP TX SCH ×2 (14:14→20:16)
[2018-05-28] MEDS ORDERED: MULTIVITAMIN INJ 10 ML in AMINO ACIDS/DEXT/LYTES 5-15% 2,000 ML IV SCH (17:00)
[2018-05-28] MEDS: FAT EMULSION 20% 250 ML IV SCH (17:37)
[2018-05-28] MEDS: ENOXAPARIN 30 MG/0.3 ML SYRINGE SUBCUT SCH (21:14)
[2018-05-29] MEDS: ALBUTEROL/IPRATROPIUM 3 ML NEB RESP TX SCH ×4 (00:52→19:28)
[2018-05-29] MEDS: HYDROmorphone 2 MG/1 ML VIAL IV PRN ×3 (01:21→09:36)
[2018-05-29] MEDS: PIPERACILLIN/TAZOBACTAM 3,375 MG in SODIUM CHLORIDE 0.9% 100 ML IV SCH ×3 (04:17→21:08)
[2018-05-29 05:44] LABS: Eosinophils # 0.5 10*3/uL (0.0-0.87); Eosinophils % 1.5 % (0.00-10.9); Hematocrit 32.4 VOL% (42.0-52.0); Hemoglobin 10.1 GM/DL (14.0-18.0); Immature Granulocytes % 10.3 %; Immature Granulocytes Absolute 3.59 #; Lymphocytes # 0.7 10*3/uL (1.4-4.0); Lymphocytes % 1.9 % (21.2-54.2); Mean Corpuscular HGB Conc 31.2 GM/DL (32-36); Mean Corpuscular Hemoglobin 30 PG (27-34); Mean Platelet Volume 12.1 FL (9.6-12.0); Monocytes # 2.5 10*3/uL (0.11-0.8); Monocytes % 7.2 % (1.7-12.7); NRBC # 0.13 10*3/uL; Neutrophils # 27.7 10*3/uL (1.4-7.4); Neutrophils % 79.1 % (38.7-73.9); Platelet Count 117 T/CUMM (130-400); Red Blood Count 3.34 MC/CUMM (3.8-5.5); Red Cell Distribution Width 22.1 % (9.3-17.3)
[2018-05-29 06:11] LABS: Band Neutrophils 21 % (0-10); Lymphocytes 7 % (20-55); Myelocytes 2 %; Segmented Neutrophils 64 % (50-85); Total Cells Counted 100
[2018-05-29 06:12] LABS: Hypochromasia 1+; Macrocytosis 1+; Polychromasia Slight
[2018-05-29 06:13] LABS: Albumin 1.7 G/DL (3.4-5.0); Bilirubin,Total 3.4 MG/DL (0.2-1.0); Calcium 7.8 MG/DL (8.5-10.1); Osmolality,Calculated 277.9 MOS/KG (273-304); Platelet Estimate Adequate; Potassium 3.5 MMOL/L (3.5-5.1)
[2018-05-29 06:15] LABS: Prealbumin 3.2 MG/DL (20-40)
[2018-05-29] MEDS: PANTOPRAZOLE 40 MG VIAL IV SCH (09:37)
[2018-05-29] MEDS ORDERED: METOCLOPRAMIDE 10 MG/2 ML VIAL IV PRN (09:43)
[2018-05-29] MEDS ORDERED: SODIUM CHLORIDE 0.9% 500 ML IV ONE (17:59)
[2018-05-29] MEDS: FAT EMULSION 20% 250 ML IV SCH (18:19)
[2018-05-29] MEDS: MULTIVITAMIN INJ 10 ML in AMINO ACIDS/DEXT/LYTES 5-15% 2,000 ML IV SCH (18:20)
[2018-05-29] MEDS: ENOXAPARIN 30 MG/0.3 ML SYRINGE SUBCUT SCH (21:10)
[2018-05-30] MEDS: ALBUTEROL/IPRATROPIUM 3 ML NEB RESP TX SCH ×4 (01:00→19:48)
[2018-05-30] MEDS: PIPERACILLIN/TAZOBACTAM 3,375 MG in SODIUM CHLORIDE 0.9% 100 ML IV SCH (04:21)
[2018-05-30 05:58] LABS: Eosinophils # 0.4 10*3/uL (0.0-0.87); Hematocrit 34.4 VOL% (42.0-52.0); Hemoglobin 10.9 GM/DL (14.0-18.0); Immature Granulocytes Absolute 5.46 #; Lymphocytes # 0.8 10*3/uL (1.4-4.0); Lymphocytes % 1.9 % (21.2-54.2); Mean Corpuscular HGB Conc 31.7 GM/DL (32-36); Mean Corpuscular Hemoglobin 31 PG (27-34); Mean Corpuscular Volume 96.4 FL (87-102); Mean Platelet Volume 12.5 FL (9.6-12.0); Monocytes # 2.9 10*3/uL (0.11-0.8); Monocytes % 6.9 % (1.7-12.7); NRBC # 0.11 10*3/uL; Neutrophils # 32.6 10*3/uL (1.4-7.4); Neutrophils % 77.2 % (38.7-73.9); Platelet Count 106 T/CUMM (130-400); Red Blood Count 3.57 MC/CUMM (3.8-5.5); Red Cell Distribution Width 22.7 % (9.3-17.3)
[2018-05-30 06:05] LABS: INR 1.1; Partial Thromboplastin Time 38.2 SECS (0-40)
[2018-05-30 06:19] LABS: White Blood Count 42.2 T/CUMM (4-12)
[2018-05-30 06:25] LABS: Albumin 1.6 G/DL (3.4-5.0); Bilirubin,Total 3.6 MG/DL (0.2-1.0); Calcium 7.8 MG/DL (8.5-10.1); Osmolality,Calculated 279.8 MOS/KG (273-304); Potassium 3.4 MMOL/L (3.5-5.1); Total Protein 5.2 G/DL (6.4-8.3)
[2018-05-30 06:33] LABS: Anisocytosis 1+; Band Neutrophils 68 % (0-10); Lymphocytes 8 % (20-55); Metamyelocytes 2 %; Nucleated Red Blood Cells 1 (0-5); Platelet Estimate Adequate; Polychromasia Slight; Segmented Neutrophils 18 % (50-85); Total Cells Counted 100
[2018-05-30 06:34] LABS: Macrocytosis 1+
[2018-05-30] MEDS: PANTOPRAZOLE 40 MG VIAL IV SCH (08:00)
[2018-05-30] MEDS ORDERED: ALBUMIN 5% 25 GM in PREMIX 1 EACH IV ONE (08:49)
[2018-05-30] MEDS ORDERED: MORPHINE 4 MG/1 ML VIAL IV PRN ×3 (08:50→10:01)
[2018-05-30] MEDS: METOCLOPRAMIDE 10 MG/2 ML VIAL IV SCH ×2 (09:39→16:45)
[2018-05-30] MEDS: MORPHINE 4 MG/1 ML VIAL IV PRN ×2 (11:30→16:45)
[2018-05-30] MEDS ORDERED: POTASSIUM CHLORIDE RIDER 10 MEQ in PREMIX 1 EACH IV SCH (13:30)
[2018-05-30] MEDS: FAT EMULSION 20% 250 ML IV SCH (14:38)
[2018-05-30] MEDS: MULTIVITAMIN INJ 10 ML in AMINO ACIDS/DEXT/LYTES 5-15% 2,000 ML IV SCH (14:38)
[2018-05-30] MEDS: POTASSIUM CHLORIDE INJ 10 MEQ in SODIUM CHLORIDE 0.9% 1,000 ML IV SCH (16:45)
[2018-05-30] MEDS: ENOXAPARIN 30 MG/0.3 ML SYRINGE SUBCUT SCH (21:38)
[2018-05-30] MEDS: LACTATED RINGERS 1,000 ML IV SCH (23:11)
[2018-05-31] MEDS: METOCLOPRAMIDE 10 MG/2 ML VIAL IV SCH ×3 (01:03→17:01)
[2018-05-31] MEDS: ALBUTEROL/IPRATROPIUM 3 ML NEB RESP TX SCH ×4 (01:11→20:34)
[2018-05-31 05:33] LABS: Eosinophils # 0.5 10*3/uL (0.0-0.87); Eosinophils % 1.2 % (0.00-10.9); Hematocrit 32.2 VOL% (42.0-52.0); Hemoglobin 10.2 GM/DL (14.0-18.0); Immature Granulocytes % 11.8 %; Immature Granulocytes Absolute 4.82 #; Lymphocytes # 0.8 10*3/uL (1.4-4.0); Mean Corpuscular HGB Conc 31.7 GM/DL (32-36); Mean Corpuscular Hemoglobin 30 PG (27-34); Mean Corpuscular Volume 95.5 FL (87-102); Mean Platelet Volume 12.2 FL (9.6-12.0); Monocytes # 3.6 10*3/uL (0.11-0.8); Monocytes % 8.7 % (1.7-12.7); NRBC # 0.07 10*3/uL; Neutrophils # 31.3 10*3/uL (1.4-7.4); Neutrophils % 76.3 % (38.7-73.9); Platelet Count 111 T/CUMM (130-400); Red Blood Count 3.37 MC/CUMM (3.8-5.5); Red Cell Distribution Width 23.4 % (9.3-17.3)
[2018-05-31 05:52] LABS: Calcium 7.6 MG/DL (8.5-10.1); Osmolality,Calculated 278.9 MOS/KG (273-304); Potassium 3.5 MMOL/L (3.5-5.1)
[2018-05-31 05:55] LABS: Calcium 7.5 MG/DL (8.5-10.1); Osmolality,Calculated 279.8 MOS/KG (273-304); Potassium 3.4 MMOL/L (3.5-5.1)
[2018-05-31 06:09] LABS: Band Neutrophils 20 % (0-10); Eosinophils 1 % (0-10); Hypochromasia 1+; Lymphocytes 3 % (20-55); Metamyelocytes 1 %; Myelocytes 1 %; Ovalocytes Slight; Platelet Estimate Decreased; Segmented Neutrophils 63 % (50-85); Total Cells Counted 100
[2018-05-31 06:10] LABS: Macrocytosis Slight; Polychromasia Slight
[2018-05-31] MEDS: PANTOPRAZOLE 40 MG VIAL IV SCH (08:49)
[2018-05-31] MEDS: MULTIVITAMIN INJ 10 ML in AMINO ACIDS/DEXT/LYTES 5-15% 2,000 ML IV SCH (09:48)
[2018-05-31] MEDS: POTASSIUM CHLORIDE INJ 10 MEQ in SODIUM CHLORIDE 0.9% 1,000 ML IV SCH ×2 (09:48→12:35)
[2018-05-31] MEDS: FAT EMULSION 20% 250 ML IV SCH (14:32)
[2018-05-31] MEDS: ENOXAPARIN 30 MG/0.3 ML SYRINGE SUBCUT SCH (21:17)
[2018-05-31] MEDS: MORPHINE 4 MG/1 ML VIAL IV PRN (21:58)
[2018-06-01] MEDS: MORPHINE 4 MG/1 ML VIAL IV PRN ×4 (00:13→20:23)
[2018-06-01] MEDS: ALBUTEROL/IPRATROPIUM 3 ML NEB RESP TX SCH ×2 (01:38→08:04)
[2018-06-01] MEDS: METOCLOPRAMIDE 10 MG/2 ML VIAL IV SCH ×2 (02:27→08:15)
[2018-06-01 04:44] LABS: Eosinophils # 0.4 10*3/uL (0.0-0.87); Eosinophils % 0.9 % (0.00-10.9); Hematocrit 33.7 VOL% (42.0-52.0); Hemoglobin 10.9 GM/DL (14.0-18.0); Immature Granulocytes % 9.4 %; Immature Granulocytes Absolute 4.52 #; Lymphocytes # 0.9 10*3/uL (1.4-4.0); Lymphocytes % 1.9 % (21.2-54.2); Mean Corpuscular HGB Conc 32.3 GM/DL (32-36); Mean Corpuscular Hemoglobin 31 PG (27-34); Mean Corpuscular Volume 95.7 FL (87-102); Mean Platelet Volume 12.8 FL (9.6-12.0); Monocytes # 3.3 10*3/uL (0.11-0.8); NRBC # 0.05 10*3/uL; Neutrophils # 38.7 10*3/uL (1.4-7.4); Neutrophils % 80.8 % (38.7-73.9); Platelet Count 135 T/CUMM (130-400); Red Blood Count 3.52 MC/CUMM (3.8-5.5); Red Cell Distribution Width 24.1 % (9.3-17.3)
[2018-06-01 04:48] LABS: White Blood Count 47.9 T/CUMM (4-12)
[2018-06-01 05:04] LABS: Calcium 7.7 MG/DL (8.5-10.1); Osmolality,Calculated 278.1 MOS/KG (273-304); Potassium 4.1 MMOL/L (3.5-5.1)
[2018-06-01 05:11] LABS: Band Neutrophils 20 % (0-10); Eosinophils 2 % (0-10); Lymphocytes 2 % (20-55); Platelet Estimate Normal; Segmented Neutrophils 69 % (50-85); Total Cells Counted 100
[2018-06-01 05:12] LABS: Hypochromasia 1+; Macrocytosis Slight; Polychromasia Slight
[2018-06-01] MEDS: MULTIVITAMIN INJ 10 ML in AMINO ACIDS/DEXT/LYTES 5-15% 2,000 ML IV SCH (06:20)
[2018-06-01] MEDS: PANTOPRAZOLE 40 MG VIAL IV SCH (08:18)
[2018-06-01] MEDS ORDERED: LORazepam 2 MG/1 ML VIAL IV PRN (10:12)
[2018-06-01] MEDS: POTASSIUM CHLORIDE INJ 10 MEQ in SODIUM CHLORIDE 0.9% 1,000 ML IV SCH (10:45)
[2018-06-01] MEDS: ONDANSETRON 4 MG/2 ML VIAL IV PRN (19:05)
[2018-06-02] MEDS: MORPHINE 4 MG/1 ML VIAL IV PRN ×3 (00:59→12:55)
[2018-06-02 09:37] VITALS: BP 86/56
== END 2018-06-02 13:09 | disposition expired | DRG 853 ==
LOC: EDBD → EDUNIT# → N.ED 16:23 → SUATTDRO 18:53 → N.EDINP 18:53 → N.5E 19:25 → N.ICU 05-24 13:34 → N.4E 05-25 10:39
PROVIDERS: ADMIT Hospitalist; ATTEND Internal Medicine